=== PATIENT | male | born 1975 | race Caucasian/White ===

== ENCOUNTER 2019-12-05 11:00 | Emergency (ER) | payer BC, SELFPAY ==
--- NOTE | ~2019-12-05 | XR_ITS ---
EXAMINATION: XR chest 2V DATE: 12/05/2019 12:07 INDICATION: Cough and shortness of breath. TECHNIQUE: Frontal and lateral views of the chest were obtained. COMPARISON: Chest 2 views 03/23/2014 FINDINGS: The chest demonstrates clear lungs without pneumonia, pleural effusion, or pneumothorax. Th e heart size is normal. IMPRESSION: 1. No acute cardiopulmonary disease. Reviewed, dictated and finalized at location A.
[2019-12-05 11:10] VITALS: BP 118/80; PULSE 84; RESP 18; TEMP 36.8; O2SAT 98
--- NOTE | 2019-12-05 11:14 | ECG_ITS ---
Measurements Intervals [place] Rate: 71 P: 31 OK: 164 QRS: 5 QRSD: 106 T: 9 QT: 355 QTc: 386 Interpretive Statements SINUS RHYTHM POSSIBLE LEFT ATRIAL ENLARGEMENT BASELINE ARTIFACT- V3 BORDERLINE ECG Electronically Signed On 12-05-2019 13:43:02 CDT by Marshal Troy D.O.
--- NOTE | 2019-12-05 11:15 | ED.URI ---
HPI - URI/Sore Throat General Chief Complaint: Chest Pain Stated Complaint: cough/chest congestion/pain Time Seen by Provider: 12/05/19 11:20 Source: patient and RN notes reviewed Mode of arrival: ambulatory Limitations: no limitations History of Present Illness HPI Narrative: 44 year old male who presents to [facility] care with complaints of cough with sinus drainage, intermittent chest tightness and left chest pain for the past 2-3 weeks. Patient states that he has burning type of pain in his chest, has been taking flonase for his nasal drainage. Patient states shortness of breath and chest pain not increased with activity, denies any palpitations or peripheral edema.Patient does have history of hypertension and hyperlipidemia, states that chest pain has increased in frequency for the past 2 days, rates pain a 3/10, states that he took 2 aspirin tabs this morning. He states family history of cardiac disease in his father who passed at age 55. MD elicited complaint: cough, rhinorrhea and other (chest pain) Pertinent past history: tympanostony tubes Onset (ago): week(s) (2-3 weeks with increase in past 2 days) Consistency: intermittent Severity: mild Description of mucous: clear Able to tolerate fluids by mouth: Yes Exacerbating factors: nothing Relieving factors: nothing Context: other (previous sinus drainage) Associated symptoms: rhinorrhea, cough, chest pain and shortness of breath Treatments prior to arrival: other (nasal spray, took aspirin today) Related Data Home Medications Medication Instructions Recorded Confirmed fluticasone propionate 50 1 spray NASAL DAILY 10/25/19 mcg/actuation nasal spray,suspension lisinopril 10 mg tablet 10 mg PO DAILY 10/25/19 simvastatin 40 mg tablet 40 mg PO QPM tablet 10/25/19 Allergies Allergy/AdvReac Type Severity Reaction Status Date / Time No Known Allergies Allergy Verified 12/05/19 11:27 Review of Systems Review of Systems: Narrative: CONSTITUTIONAL: Denies fever, chills, or sweats. EYES: Denies visual changes, redness, or discharge. ENT: positive rhinorrhea, congestion, no present sore throat, or otalgia. CARDIOVASCULAR: States intermittent anterior left chest pain, burning and tightness to chest,no palpitations, or edema. RESPIRATORY: States some cough and dyspnea. GASTROINTESTINAL: Denies abdominal pain, nausea, vomiting, or diarrhea. GENITOURINARY: Denies dysuria or hematuria. SKIN: Denies rash or itching. MUSCULOSKELETAL: Denies back pain, joint pain, or myalgia. NEUROLOGIC: Denies headache, numbness, or weakness. PSYCHIATRIC: Denies anxiety or depression. All systems reviewed & are unremarkable except as noted in HPI and below PMFSH Past Medical History Medical History (Updated 12/05/19 @ 12:22 by Susie Roy NP) Boxers fracture Carpal tunnel syndrome of right wrist Ear drum perforation Hyperlipidemia Hypertension Tumor cells, benign Surgical History Surgical History History of placement of ear tubes Family History Family History Other Family history of coronary artery disease Social History Social History Smoking status: Never smoker Second hand tobacco smoke exposure: No Alcohol intake: current Drinks per week: 2 Substance use: never Substance use type: does not use Gender identity (if verbalized by the patient): Male Spiritual care concerns: Yes Agree to blood products: Yes Comments At time of signature, agree with nursing past medical, surgical, social history. There is relevant family history pertinent to the presenting complaint Exam Narrative: Exam Narrative: GENERAL: Well-appearing, well-nourished, and in no acute distress. HEAD: Normocephalic, atraumatic. EYES: PERRLA and EOMI. ENT: Nares clear, clear rhinorrhea or epistaxis. Mucous membrane
== END 2019-12-05 12:23 | disposition short-term general hospital (02) ==
PROVIDERS: Emergency Provider Registered Nurse; PCP Family Medicine
DX: R06.02 Shortness of breath (principal); R07.9 Chest pain, unspecified; E78.5 Hyperlipidemia, unspecified; I10 Essential (primary) hypertension
CPT/HCPCS: 71046; 93005; 99213; G0463

== ENCOUNTER 2019-12-05 13:20 | Emergency (ER) | payer BC, SELFPAY ==
[2019-12-05 13:24] VITALS: BP 148/86; PULSE 95; RESP 18; TEMP 36.6; O2SAT 97
--- NOTE | 2019-12-05 13:27 | ECG_ITS ---
Measurements Intervals [place] Rate: 99 P: 38 MN: 159 QRS: 1 QRSD: 110 T: 29 QT: 328 QTc: 421 Interpretive Statements SINUS RHYTHM BASELINE ARTIFACT- I, II, III, AVR, AVF BORDERLINE ECG Electronically Signed On 12-05-2019 13:45:46 CDT by Marshal Troy D.O.
--- NOTE | 2019-12-05 13:33 | ED.CHESTPAIN ---
HPI - Chest Pain General Chief Complaint: Chest Pain <Karuna Maier MD - Last Filed: 12/06/19 06:31> Stated Complaint: chest pain, short of breath <Karuna Maier MD - Last Filed: 12/06/19 06:31> Time Seen by Provider: 12/05/19 13:27 <Karuna Maier MD - Last Filed: 12/06/19 06:31> Source: patient and RN notes reviewed <Karuna Maier MD - Last Filed: 12/06/19 06:31> Mode of arrival: ambulatory <Karuna Maier MD - Last Filed: 12/06/19 06:31> Limitations: no limitations <Karuna Maier MD - Last Filed: 12/06/19 06:31> History of Present Illness HPI narrative: Pt is a 44 y/o male who presents to the ED with c/o progressively worsening midsternal chest pain starting roughly 1 month ago. He notes that his pain has been constant over the past week. Pt describes his pain as burning, and notes that nothing in particular seems to aggravate his pain. He currently rates his pain at 2-3/10. Pt reports nausea, post-nasal drip, and a dry cough accompanying his pain, but denies any back pain, LE edema, or LE pain. He notes that he took ASA this morning for his pain. Pt states that his father from cardiac complications at the age of 55. <Karuna Maier MD - Last Filed: 12/06/19 06:31> MD complaint: chest pain <Karuna Maier MD - Last Filed: 12/06/19 06:31> Onset (ago): month(s) (1) <Karuna Maier MD - Last Filed: 12/06/19 06:31> Timing of current episode: other (progressively worsening) <Karuna Maier MD - Last Filed: 12/06/19 06:31> Pain location: other (midsternal chest) <Karuna Maier MD - Last Filed: 12/06/19 06:31> Pain radiation: none <Karuna Maier MD - Last Filed: 12/06/19 06:31> Pain scale (0-10): 3 <Karuna Maier MD - Last Filed: 12/06/19 06:31> Quality: burning <Karuna Maier MD - Last Filed: 12/06/19 06:31> Exacerbating factors: nothing <Karuna Maier MD - Last Filed: 12/06/19 06:31> Associated symptoms: nausea, cough and other (post-nasal drip) <Karuna Maier MD - Last Filed: 12/06/19 06:31> Treatment prior to arrival: aspirin <Karuna Maier MD - Last Filed: 12/06/19 06:31> Related Data Home Medications: Home Medications Medication Instructions Recorded Confirmed fluticasone propionate 50 1 spray NASAL DAILY 10/25/19 12/05/19 mcg/actuation nasal spray,suspension lisinopril 10 mg tablet 10 mg PO DAILY 10/25/19 12/05/19 simvastatin 40 mg tablet 40 mg PO QPM tablet 10/25/1920 <Karuna Maier MD - Last Filed: 12/06/19 06:31> Allergies/Adverse Reactions: Allergies Allergy/AdvReac Type Severity Reaction Status Date / Time No Known Allergies Allergy Verified 12/05/19 11:27 <Karuna Maier MD - Last Filed: 12/06/19 06:31> Review of Systems Review of Systems: All systems reviewed & are unremarkable except as noted in HPI and below <Karuna Maier MD - Last Filed: 12/06/19 06:31> ENT: Reports post nasal drip <Karuna Maier MD - Last Filed: 12/06/19 06:31> Cardiovascular: Cardiovascular: Reports chest pain (midsternal chest pain) and Denies leg edema <Karuna Maier MD - Last Filed: 12/06/19 06:31> Respiratory: Respiratory: Reports cough <Karuna Maier MD - Last Filed: 12/06/19 06:31> Gastrointestinal: Gastrointestinal: Reports nausea <Karuna Maier MD - Last Filed: 12/06/19 06:31> Musculoskeletal: Musculoskeletal: Denies back pain and Denies other (LE pain) <Karuna Maier MD - Last Filed: 12/06/19 06:31> [facility] Past Medical History Medical History: Medical History Back pain Boxers fracture Carpal tunnel syndrome of right wrist Ear drum perforation History of angina Hyperlipidemia Hypertension Tumor cells, benign <Karuna Maier MD - Last Filed: 12/06/19 06:31> Surgical History Surgical History: Surgica
[2019-12-05 13:35] VITALS: PULSE 101
[2019-12-05] MEDS: ASPIRIN 81 MG CHEWABLE TABLET 324 MG PO (13:37)
[2019-12-05 13:39] LABS: Basophils Percent Auto 0.2 % (0.2-1.2); Eosinophils Absolute Auto 0.3 K/mm3 (0-0.3); Hematocrit 50.4 % (42.0-52.0); Hemoglobin 16.9 g/dL (14.0-18.0); Immature Granulocyte Absolute 0.04 K/mm3 (0.00-0.031); Immature Granulocyte Percent A 0.5 % (0-0.5); Lymphocytes Percent Auto 20.3 % (18.3-44.2); Mean Corpuscular HGB Conc 33.5 g/dl (32-36); Mean Corpuscular Hemoglobin 29.8 pg (26-34); Mean Corpuscular Volume 88.9 fl (80-100); Mean Platelet Volume 10.5 fl (7.4-10.4); Monocytes Absolute Auto 0.5 K/mm3 (0.1-0.6); Monocytes Percent Auto 5.5 % (2.6-8.5); Neutrophils Absolute Auto 5.9 K/mm3 (1.3-6.7); Neutrophils Percent Auto 70.5 % (45.5-73.1); Platelet Count Result 201 k/mm3 (150-375); Red Blood Count 5.67 M/mm3 (4.6-6.20); Red Cell Distribution Width 12.7 % (11.5-14.5); White Blood Count 8.4 K/mm3 (4.5-10.0)
[2019-12-05 13:40] VITALS: O2SAT 98
[2019-12-05 13:49] LABS: Prothrombin Time 12.5 Seconds (11.1-14.7)
[2019-12-05 13:50] LABS: Blood Urea Nitrogen 12 mg/dL (9-20); Calcium 9.7 mg/dL (8.4-10.2); Carbon Dioxide 29 mmol/L (22-30); Chloride 100 mmol/L (98-107); Estimated CRCL calculation 117 ml/min; Estimated Glomerular Filt Rate > 60; Glucose 179 mg/dL (75-110); Partial Thromboplastin Time 28.9 SECONDS (22.3-36.8); Potassium 3.8 mmol/L (3.4-5.0); Sodium 137 mmol/L (137-145)
[2019-12-05 13:53] LABS: D Dimer 0.27 ug/mL (<0.48)
[2019-12-05 14:02] LABS: Troponin I < 0.012 ng/mL (0.000-0.034)
[2019-12-05 14:41] VITALS: BP 143/92; PULSE 81; RESP 18; O2SAT 97
[2019-12-05] MEDS: BELLADONNA ALK/PHENOB ELIX 10 ML, MAG HYDROX/ALUMINUM HYD/SIMETH 30 ML, LIDOCAINE HCL 2... PO (14:53)
--- NOTE | 2019-12-05 15:29 | PC.NURSE ---
pt reports no improvement in upper abd discomfort/burning after gi cocktail. rates discomfort at 3/10.
[2019-12-05 17:11] LABS: Troponin I < 0.012 ng/mL (0.000-0.034)
[2019-12-05 17:35] VITALS: BP 142/93; PULSE 77; RESP 17; O2SAT 97
== END 2019-12-05 17:36 | disposition home or self-care (01) ==
PROVIDERS: Emergency Provider General Practice; PCP Family Medicine
DX: R07.89 Other chest pain (principal); E78.5 Hyperlipidemia, unspecified; I10 Essential (primary) hypertension; R94.31 Abnormal electrocardiogram [ECG] [EKG]
CPT/HCPCS: 36415; 80048; 84484; 85025; 85380; 85610; 85730; 93005; 99284; A9270

== ENCOUNTER 2019-12-23 07:11 | Outpatient (CLI) | payer BC, SELFPAY ==
--- NOTE | ~2019-12-23 | NM_ITS ---
EXAMINATION: NM stress w perf spect multi DATE: 12/23/2019 10:31 INDICATION: Abnormal EKG. Chest pain and essential hypertension. TECHNIQUE: Rest images were obtained following intravenous administration of 9.53 mCi Tc99m tetrofosm in (Myoview). The patient performed an exercise activity. At peak exercise, 29.6 mCi Tc99m tetrofosmi n (Myoview) was administered intravenously, and stress images were obtained. Data was reconstructed i nto short axis and horizontal and vertical long axis SPECT images. Gated SPECT images were also obtai haylee. COMPARISON: None. FINDINGS: There is normal left ventricular perfusion without definite evidence of reversible or fixed perfusion abnormality to suggest ischemia or infarction. There is normal left ventricular chamber size, wall motion and ejection fraction. Left ventricular ejection fraction measures >70%. IMPRESSION: 1. Normal myocardial perfusion at rest and during stress. 2. Left ventricular ejection fraction measuring >70%. Reviewed, dictated and finalized at location A.
--- NOTE | 2019-12-23 07:13 | EST_ITS ---
Patient Info Name: Eric Bojorquez Age: 44 years : 1975 Gender: Male Ht: 73 in Wt: 230 lbs BSA: 2.34 m2 Exam Date: 12/23/2019 9:13 AM Exam Location: [facility] Stress Patient Status: Outpatient Admit Date: 12/23/2019 Staff Ordering Physician: Kary Britton MD Attending Provider: Kary Britton MD Exercise Technologist: Dinah Roberts RDCS Exercise Physician: Marshal Troy DO Exam Type: CA stress test treadmill w NM Study Info Indications I10 - Essential (primary) hypertension R94.31 - Abnormal electrocardiogram ECG EKG A pharmacological stress test was performed. Summary 1. 1. Negative Faustino exercise stress test for ischemic ST changes by ECG criteria. 2. 2. Good functional capacity, achieving 11 METs of workload. 3. 3. Baseline hypertension. 4. 4. Appropriate HR response to exercise. 5. 5. Appropriate HR recovery at 1 minute post exercise. 6. 6. Nuclear scan to follow and will be reported separately. Please correlate with it. 7. 7. Patient informed of the above results. Protocol: Faustino Stress ECG Details Stage: REST Duration (min): 6 min : 17 sec Speed (mph): 0.0 Grade (%): 0 HR (bpm): 71 SBP (mmHg): 140 DBP (mmHg): 94 METS: --- Stage: REST Duration (min): 13 min : 56 sec Speed (mph): 0.0 Grade (%): 0 HR (bpm): 77 SBP (mmHg): 140 DBP (mmHg): 94 METS: --- Stage: STAGE 1 Duration (min): 1 min : 0 sec Speed (mph): 1.7 Grade (%): 10 HR (bpm): 86 SBP (mmHg): 140 DBP (mmHg): 94 METS: --- Stage: STAGE 1 Duration (min): 2 min : 0 sec Speed (mph): 1.7 Grade (%): 10 HR (bpm): 100 SBP (mmHg): 140 DBP (mmHg): 94 METS: --- Stage: STAGE 1 Duration (min): 3 min : 0 sec Speed (mph): 1.7 Grade (%): 10 HR (bpm): 104 SBP (mmHg): 163 DBP (mmHg): 85 METS: --- Stage: STAGE 2 Duration (min): 1 min : 0 sec Speed (mph): 2.5 Grade (%): 12 HR (bpm): 119 SBP (mmHg): 163 DBP (mmHg): 85 METS: --- Stage: STAGE 2 Duration (min): 2 min : 0 sec Speed (mph): 2.5 Grade (%): 12 HR (bpm): 126 SBP (mmHg): 177 DBP (mmHg): 82 METS: --- Stage: STAGE 2 Duration (min): 3 min : 0 sec Speed (mph): 2.5 Grade (%): 12 HR (bpm): 125 SBP (mmHg): 177 DBP (mmHg): 82 METS: --- Stage: STAGE 3 Duration (min): 1 min : 0 sec Speed (mph): 3.4 Grade (%): 14 HR (bpm): 138 SBP (mmHg): 164 DBP (mmHg): 87 METS: --- Stage: STAGE 3 Duration (min): 2 min : 0 sec Speed (mph): 3.4 Grade (%): 14 HR (bpm): 146 SBP (mmHg): 164 DBP (mmHg): 87 METS: --- Stage: STAGE 3 Duration (min): 3 min : 0 sec Speed (mph): 3.4 Grade (%): 14 HR (bpm): 150 SBP (mmHg): 168 DBP (mmHg): 86 METS: --- Stage: STAGE 4 Duration (min): 0 min : 45 sec Speed (mph): 4.2 Grade (%): 16 HR (bpm): 161 SBP (mmHg): 168 DBP (
== END 2019-12-23 07:12 | disposition home or self-care (01) ==
LOC: ANHCARD 07:13
PROVIDERS: PCP Family Medicine; Visit Provider Family Medicine
DX: R94.31 Abnormal electrocardiogram [ECG] [EKG] (principal); R07.89 Other chest pain; I10 Essential (primary) hypertension
CPT/HCPCS: 78452; 93017; A9502

== ENCOUNTER 2020-02-24 19:12 | Emergency (ER) | payer BC, SELFPAY ==
--- NOTE | ~2020-02-24 | CT_ITS ---
EXAMINATION: CT abdomen pelvis wo con DATE: 02/24/2020 19:54 INDICATION: Left lower quadrant abdominal pain TECHNIQUE: Computed tomography (CT) of the abdomen and pelvis was performed without intravenous contr ast. The dose-length product (DLP) was 1206.03 mGy-cm. Automated exposure control and iterative recon struction technique were employed. COMPARISON: None FINDINGS: The lung bases are clear. The heart size is normal. The liver, spleen, pancreas, gallbladde r, and adrenal glands are normal. A stone is present in the nondistended gallbladder. The kidneys are unremarkable. No pathologically enlarged abdominal or pelvic lymph nodes are identified. The appendi x is normal. There is no free intraperitoneal gas or evidence of bowel obstruction. There are fat-con taining inguinal hernias. There is mild lumbar spondylosis. IMPRESSION: 1. No CT correlate for the patient's symptoms. 2. Cholelithiasis without evidence of cholecystitis. Reviewed, dictated and finalized at location A.
--- NOTE | ~2020-02-24 | US_ITS ---
EXAMINATION: US scrotum doppler DATE: 02/24/2020 21:13 INDICATION: Left testicular pain TECHNIQUE: Testicular sonogram utilizing grayscale and Doppler COMPARISON: None. FINDINGS: The right testis measures 4.2 x 3.0 x 2.7 cm. The left testis measures 3.3 x 3.0 x 2.3 cm. There is normal vascular flow to both testes. The right epididymis is normal with normal vascular bennie w. The left epididymis is normal with normal vascular flow. There is no varicocele or hydrocele. IMPRESSION: 1. No sonographic correlate for the patient's symptoms. Reviewed, dictated and finalized at location A.
[2020-02-24 19:21] VITALS: BP 153/95; PULSE 79; RESP 14; TEMP 36.7; O2SAT 99
[2020-02-24 19:27] VITALS: BP 147/93; PULSE 89; RESP 17; TEMP 37.3; O2SAT 98
--- NOTE | 2020-02-24 19:34 | ED.ABDPAIN ---
HPI - Abdominal Pain General Chief Complaint: Urogenital-Male Stated Complaint: testicular pain Time Seen by Provider: 02/24/20 19:25 Source: RN notes reviewed History of Present Illness HPI narrative: Patient presents emergency department from home for abdominal pain. Patient states symptoms began 1 week ago. Patient states he has pain in left lower quadrant radiating to the left testicle. The pain is described as sharp and stabbing. States one episode of emesis 2 days ago but none since. Denies any fevers or chills diarrhea dysuria hematuria or any other symptoms. States he took naproxen today with minimal relief Related Data Home Medications Medication Instructions Recorded Confirmed fluticasone propionate 50 1 spray NASAL DAILY 10/25/19 12/06/19 mcg/actuation nasal spray,suspension Allergies Allergy/AdvReac Type Severity Reaction Status Date / Time No Known Allergies Allergy Verified 02/24/20 19:29 Review of Systems Review of Systems: Narrative: Gen.: Denies fevers or chills ENT: Denies congestion Respiratory: Denies shortness of breath or cough CV: Denies chest pain or palpitations GI: See HPI denies burning, urgency, frequency or hematuria, reports left testicle pain Musculoskeletal: Denies back pain or muscle pain Neuro: Denies numbness, tingling, weakness or focal weakness Skin: Denies rash Except as documented, all other systems reviewed and negative PMFSH Past Medical History Medical History Back pain Boxers fracture Carpal tunnel syndrome of right wrist Ear drum perforation History of angina Hyperlipidemia Hypertension Tumor cells, benign Family History Family History (System 01/25/20 @ 08:48 by Joellen Mcconnell) Father Acute myocardial infarction Other Family history of coronary artery disease Social History Social History Smoking status: Never smoker Second hand tobacco smoke exposure: No Alcohol intake: current Drinks per week: 2 Substance use: never Substance use type: does not use Gender identity (if verbalized by the patient): Male Spiritual care concerns: Yes Agree to blood products: Yes Exam Narrative: Exam Narrative: APPEARANCE: No acute distress, nontoxic, resting in bed HEENT: Normocephalic, atraumatic, OMM RESPIRATORY: No respiratory distress, clear to auscultation bilaterally with no rhonchi wheezing or rales CARDIOVASCULAR: RRR s murmur ABDOMINAL: Soft, nondistended, tender palpation left lower quadrant, no tenderness left upper quadrant, right upper quadrant right lower quadrant, no rebound or guarding : No skin lesions, no scrotal swelling or erythema, mild tenderness over posterior superior left testicle, no tenderness over the right testicle no hernias palpated MUSCULOSKELETAl: Moves all extremities. No clubbing, cyanosis or edema. NEURO: Awake and alert. Following commands, speech normal, no focal deficits SKIN:: Warm, dry. Normal Color PSYCHIATRIC: Normal affect/mood Course Course Emergency Course: Discussed with Dr. Mukherjee for urology presentation work-up. This time recommend starting patient on doxycycline 100 mg twice daily for 1 week the anti-inflammatory and follow-up as an outpatient Discussed with patient results of workup and diagnosis. Discussed need for follow-up with primary care, proper use of medication, and reasons to return to the emergency department. Patient understands and agrees to current treatment plan. I did update the patient on incidental finding of gallstones need for follow-up with PCP as an outpatient Vital Signs Vital signs: Vital Signs Temperature 98.1 F 02/24/20 19:21 Pulse Rate 79 02/24/20 19:21 Respiratory Rate 14 02/24/20 19:21 Blood Pressure 153/95 H 02/24/20 19:21 Pulse Oximetry 99 02/24/20 19:21 Temperature 99.1 F 02/24/20 19:27 Pulse Rate 73 02/24/20 2
[2020-02-24 20:00] LABS: Basophils Percent Auto 0.3 % (0.2-1.2); Eosinophils Absolute Auto 0.3 K/mm3 (0-0.3); Hematocrit 46.5 % (42.0-52.0); Hemoglobin 15.9 g/dL (14.0-18.0); Immature Granulocyte Absolute 0.02 K/mm3 (0.00-0.031); Immature Granulocyte Percent A 0.2 % (0-0.5); Lymphocytes Absolute Auto 2.17 K/mm3 (0.9-3.2); Lymphocytes Percent Auto 25.2 % (18.3-44.2); Mean Corpuscular HGB Conc 34.2 g/dl (32-36); Mean Corpuscular Hemoglobin 30.6 pg (26-34); Mean Corpuscular Volume 89.4 fl (80-100); Mean Platelet Volume 10.9 fl (7.4-10.4); Monocytes Absolute Auto 0.6 K/mm3 (0.1-0.6); Monocytes Percent Auto 7.3 % (2.6-8.5); Neutrophils Absolute Auto 5.5 K/mm3 (1.3-6.7); Platelet Count Result 203 k/mm3 (150-375); Red Cell Distribution Width 12.1 % (11.5-14.5); White Blood Count 8.6 K/mm3 (4.5-10.0)
[2020-02-24 20:02] VITALS: BP 141/89; PULSE 80; RESP 16; O2SAT 97
[2020-02-24 20:02] LABS: Alanine Aminotransferase 32 U/L (4-50); Albumin Level 4.6 g/dL (3.5-5.1); Alkaline Phosphatase 66 U/L (38-126); Aspartate Amino Transferase 28 U/L (17-59); Bilirubin,Total 0.4 mg/dL (0.2-1.3); Blood Urea Nitrogen 17 mg/dL (9-20); Calcium 9.5 mg/dL (8.4-10.2); Carbon Dioxide 26 mmol/L (22-30); Chloride 102 mmol/L (98-107); Estimated CRCL calculation 106 ml/min; Estimated Glomerular Filt Rate > 60; Glucose 99 mg/dL (75-110); Potassium 3.9 mmol/L (3.4-5.0); Sodium 135 mmol/L (137-145)
[2020-02-24 20:38] VITALS: BP 151/95; PULSE 73; RESP 16; O2SAT 96
[2020-02-24 21:04] LABS: Add Urine Microscopic? YES; Appearance Urine Clear (Clear); Bacteria Urine Trace /hpf; Bilirubin Urine Negative (Negative); Blood Urine Negative (Negative); Color Urine Yellow (Yellow); Glucose Urine UA Negative (Negative); Ketones Urine Negative (Negative); Leukocyte Esterase Ur Negative LEU/UL (Negative); Mucus Urine Moderate /lpf; Nitrate Urine Negative (Negative); Protein Urine Negative (Negative); WBC Urine 0-3 /hpf
[2020-02-24 21:51] VITALS: BP 140/98; PULSE 79; RESP 17; O2SAT 96
[2020-02-24] MEDS: DOXYCYCLINE HYCLATE 100 MG TABLET PO (21:51)
== END 2020-02-24 22:00 | disposition home or self-care (01) ==
PROVIDERS: Emergency Provider Emergency Medicine; PCP Family Medicine
DX: N50.812 Left testicular pain (principal); E78.5 Hyperlipidemia, unspecified; I10 Essential (primary) hypertension; K80.20 Calculus of gallbladder without cholecystitis without obstruction
CPT/HCPCS: 36415; 74176; 76870; 80053; 81001; 85025; 87086; 93976; 99284; A9270

== ENCOUNTER 2021-03-13 10:52 | Outpatient (CLI) | payer BC, SELFPAY ==
--- NOTE | 2021-03-28 17:14 | WPDSLEEPSTUD ---
Sleep Study Date of Study: 03/12/21 Ordering Provider: Nam Bell PA-C Interpreting Physician: Cathy De La Rosa MD Sleep Study Type: Split Polysomnogram Height: 1.85 m Weight: 104.326 kg Body Mass Index: 30.3 Neck Circumference (inches): 18 [place]: 8 Reason for Sleep Study Witnessed apneas, daytime somnolence Sleep History Eric Bojorquez is a 45 year old man who has been told that he stops breathing at night, and this is been noted at least 10 years. His father had sleep apnea and used CPAP. He does not awaken from sleep feeling short of breath. He rarely awakens at night with heartburn, belching or coughing. He constantly snores loudly enough that others complain about it. He does not have trouble sleeping with a cold. He rarely wakes up gasping for breath at night. He frequently has breathing problems at night observed by others. He occasionally sweats excessively at night although he rarely notices his heart pounding or beating irregularly night. He occasionally falls asleep in the day, never involuntarily and he never falls asleep while driving. He does not have loss of muscle tone with strong emotion. He occasionally has daytime difficulties due to excessive sleepiness. He does not feel paralyzed on waking or falling asleep nor does he have vivid dreamlike scenes upon awakening or falling asleep. He does not feel afraid to go to sleep. He does not have much nightmares. He rarely remembers his dreams. He rarely has racing thoughts. He rarely feels sad or depressed. He occasionally feels anxious. He rarely has muscular tension. He never notices parts of his body jerking and he never kicks at night. He occasionally has crawling and aching feelings in his legs and occasionally has leg pain during the night. He does not have morning jaw pain and does not grind his teeth during sleep. He occasionally has bothered by pain during the day, rarely awakened by pain at night. He frequently wakes up feeling stiff the morning. He occasionally wakes up with sore achy muscles and pain in the neck and spine. He has fatigue, sexual problems, frequent morning headaches and concentration difficulties. Normal bedtime is 10:00 p.m. falling asleep as soon as his head hits the pillow, less than a minute. He typically wakes up 2-3 times at night to urinate, is able to return to sleep within 2 minutes. He wakes the morning at 6:30 a.m.. He estimates getting between 7 and 8 hours of sleep at night. He occasionally takes naps in the afternoon or evening. Naps are not refreshing. He is usually drowsy in the morning for 2 hours or longer. He feels better in the evening compared other times of day. Habits: never smoked tobacco. Caffeine 2 beverages a day. Alcohol 2-3 beverages but not daily. [facility] Past Medical History Medical History (Updated 03/28/21 @ 17:53 by Cathy De La Rosa MD) Back pain Boxers fracture Carpal tunnel syndrome of right wrist Ear drum perforation History of angina Hyperlipidemia Hypertension Tumor cells, benign Surgical History Surgical History History of placement of ear tubes Hx of carpal tunnel repair Family History Family History Father Acute myocardial infarction Other Family history of coronary artery disease Social History Social History Smoking status: Never smoker Second hand tobacco smoke exposure: No Alcohol intake: current Drinks per week: 2 Substance use: never Substance use type: does not use Gender identity (if verbalized by the patient): Male Spiritual care concerns: Yes Agree to blood products: Yes Medications Home Medications Medication Instructions Recorded Confirmed Type ibuprofen [IBU] 600 mg PO Q6H PRN #20 tablet 02/24/20 10/25/20 Rx fluticasone propionate 50 1 spray INTRANASAL B
[2021-03-28 17:59] VITALS: BMI 30.3
== END 2021-03-14 05:52 | disposition home or self-care (01) ==
LOC: ANHCSM 03-15 08:59
PROVIDERS: PCP Physician Assistant; Visit Provider Physician Assistant
DX: G47.30 Sleep apnea, unspecified (principal); R40.0 Somnolence; G47.33 Obstructive sleep apnea (adult) (pediatric)
CPT/HCPCS: 95811

== ENCOUNTER 2023-09-17 07:43 | Outpatient (CLI) | payer OTHER, SELFPAY ==
--- NOTE | ~2023-09-17 | CT_ITS ---
EXAMINATION:CT diagnostic chest w con DATE: 09/17/2023 08:08 INDICATION: Shortness of breath. TECHNIQUE: Computed tomography (CT) of the chest was performed with 75 mL Omnipaque 350 intravenous c ontrast. Automated exposure control and iterative reconstruction technique were employed. The dose-le ngth product (DLP) was 437.29 mGy-cm. COMPARISON: None. FINDINGS: The lungs demonstrate mild atelectasis. Calcified bilateral lung nodules and calcified left hilar lymph nodes are consistent with old granulomatous disease. There are a few nodules in the lung s measuring up to 3 mm, likely benign. No pleural effusion. The heart normal. No pericardial effusion . There is a small sliding hiatal hernia. There is mild thoracic spondylosis. There is mild chronic a nterior wedging of a midthoracic body. IMPRESSION: 1. Small sliding hiatal hernia. Reviewed, dictated and finalized at location E. SPOOLER
[2023-09-17 08:01] LABS: Estimated Glomerular Filt Rate > 60
== END 2023-09-17 07:44 | disposition home or self-care (01) ==
PROVIDERS: PCP Family Medicine; Visit Provider Physician Assistant
DX: R06.02 Shortness of breath (principal); K44.9 Diaphragmatic hernia without obstruction or gangrene
CPT/HCPCS: 71260; Q9967

== ENCOUNTER 2023-09-24 08:10 | Outpatient (CLI) | payer OTHER, SELFPAY ==
--- NOTE | 2023-09-24 14:20 | WPDPFTINT ---
PFT Procedure Performed PFT Procedure Performed Plethysmography (Lung Vol) Diffusing Cap (DLCO) Flow Vol Loop Spirometry w/o Bronchodil PFT Interpretation Lung volumes were measured with the body plethysmography method. The diminished expiratory reserve volume is related to obesity. The remaining lung volumes are unremarkable. Spirometry showed normal expiratory flow rates and a normal FEV1 to FVC ratio of 84%. No post bronchodilator study was conducted. Lung diffusion capacity is within the normal range at 106% predicted. The flow volume loop is unremarkable. Impression: Spirometry, lung volumes, and lung diffusion capacity all within the normal range.
--- NOTE | 2023-09-25 15:32 | WPDPFTINT ---
PFT Procedure Performed PFT Procedure Performed Plethysmography (Lung Vol) Diffusing Cap (DLCO) Flow Vol Loop Spirometry w/o Bronchodil PFT Interpretation This is a pulmonary function test with spirometry, plethysmography and diffusing capacity. The test was performed and results interpreted in accordance with the 2019 and 2005 ATS/ERS Task Force guidelines respectively using the Global Lung Function Initiative-2012 reference equations. Patient demonstrated good effort and cooperation. Reproducibility criteria were met. The quality of the spirometry maneuver was Grade B. Findings: Spirometry: The contour the expiratory flow tracing is normal. The contour the inspiratory flow tracing is truncated. The FVC is 5.00 L, 92% predicted. The FEV1 is 4.18 L, 98% predicted. The FEV1: FVC ratio was 84%. Plethysmography: The total lung capacity is 6.65 L, 90% predicted. The functional residual capacity is 2.02 L, 53% predicted. The residual volume is 1.57 L, 75% predicted. Diffusing capacity: The diffusing capacity unadjusted for hemoglobin and carboxyhemoglobin is 33.9, 106% predicted. The diffusing capacity adjusted for alveolar volume is 6.11, 136% predicted. Impression: The spirometry is normal without evidence of an obstructive abnormality. The total lung capacity and residual volume are normal with a decreased functional residual capacity. This is an abnormal but nonspecific lung volume pattern. The diffusing capacity unadjusted for hemoglobin and carboxyhemoglobin is normal and is increased when adjusted for alveolar volume. There are no prior studies for comparison
== END 2023-09-24 08:11 | disposition home or self-care (01) ==
LOC: ANHPFT 08:13
PROVIDERS: PCP Family Medicine; Visit Provider Physician Assistant
DX: R06.02 Shortness of breath (principal)
CPT/HCPCS: 94375; 94726; 94729

== ENCOUNTER 2023-11-23 00:38 | Day surgery (SDC) | payer OTHER, SELFPAY ==
[2023-11-16 09:07] VITALS: BMI 33.0
--- NOTE | 2023-11-20 08:32 | SUR.PREOP ---
Patient called regarding upcoming procedure. Voicemail left regarding appointment times.
[2023-11-23 06:50] VITALS: BP 128/80; PULSE 93; RESP 18; TEMP 36.3; O2SAT 98; BMI 31.5
[2023-11-23] MEDS: LACTATED RINGERS 1,000 ML 150 ML IV CONT (07:07)
--- NOTE | 2023-11-23 07:30 | WPDANESEPPF ---
Anes - Initial Pre Proc Eval Procedure: Operation Date: 11/23/23 08:00 Proposed Procedures p Colonoscopy - Erwin Obrien MD Date/Time: 11/23/23 07:30 Surgeon: Erwin Obrien MD Pre Op Diagnosis: neoplasm screening Patient Data Age: 48 Gender: M Height: 1.85 m Weight: 108.3 kg Last Vital Signs Temp 97.3 F L 11/23/23 06:50 Pulse 93 11/23/23 06:50 Resp 18 11/23/23 06:50 BP 128/80 11/23/23 06:50 Pulse Ox 98 11/23/23 06:50 O2 Del Method Room Air 11/23/23 06:50 Allergies Allergy/AdvReac Type Severity Reaction Status Date / Time No Known Allergies Allergy Verified 11/23/23 06:56 Home Medications Medication Instructions Recorded Confirmed Type ibuprofen 600 mg tablet (IBU) 600 mg PO Q6H PRN pain #20 tabs 02/24/20 11/23/23 Rx fluticasone propionate 50 1 spray intranasal BID #16 grams 10/25/20 11/23/23 Rx mcg/actuation nasal spray,suspension (Allergy Relief (fluticasone)) loratadine 10 mg tablet (Claritin) 10 mg PO DAILY #30 tabs 10/25/20 11/23/23 Rx sildenafil 100 mg tablet (Viagra) 100 mg PO DAILY PRN sexual 06/18/22 11/23/23 Rx activity #10 tabs lisinopril 10 mg tablet 10 mg PO DAILY #90 tabs 05/01/23 11/23/23 Rx simvastatin 40 mg tablet 40 mg PO QPM #90 tabs 05/01/23 11/23/23 Rx Patient hx anesthesia problems: none Family hx anesthesia problems: none Results Review: All pre-operative results and documents have been reviewed as part of the pre-operative evaluation. [facility] Past Medical History Medical History Back pain Boxers fracture Carpal tunnel syndrome of right wrist Ear drum perforation History of angina Hyperlipidemia Hypertension Tumor cells, benign Surgical History Surgical History History of placement of ear tubes Hx of carpal tunnel repair Family History Family History Father Acute myocardial infarction Other Family history of coronary artery disease Social History Social History Smoking status: Never smoker Smokeless tobacco user: chewing tobacco Second hand tobacco smoke exposure: No Alcohol intake: current Drinks per week: 12 Substance use: never Substance use type: does not use Living arrangements: with family Occupation/Education: occupation Gender identity (if verbalized by the patient): Male Spiritual care concerns: No Agree to blood products: Yes Anes - Eval Final PreProcedure Day of Procedure 11/23/23 07:30 Patient weight: obese Heart: regular rate and rhythm Lungs: clear to auscultation Airway: Mallampati scale class II Neurological: alert and oriented Last oral intake: >/= 8 hours ASA classification: III Emergent: no Anesthetic plan: proceed Anesthesia type and monitoring: general GIVS and standard monitoring Results Review: All pre-operative results and documents have been reviewed as part of the pre-operative evaluation. Informed Consent: The patient's anesthetic plan and its attendant risks and benefits were discussed with the patient/family/POA. Questions were solicited and answers provided to the satisfaction of the patient/family/POA.
--- NOTE | 2023-11-23 07:49 | PM.HPGS ---
History of Present Illness History of Present Illness Consent: Risks, benefits, and alternatives have been discussed and questions answered. Patient agrees to proceed with procedure. Chief complaint: neoplasm screening Narrative: Eric Bojorquez is a 48 year old male here for first screening colonoscopy Review of Systems Review of Systems: All systems reviewed & are unremarkable except as noted in HPI and below PMFSH Past Medical History Medical History (Updated 11/23/23 @ 07:49 by Erwin Obrien MD) Back pain Boxers fracture Carpal tunnel syndrome of right wrist Colon cancer screening Ear drum perforation History of angina Hyperlipidemia Hypertension Tumor cells, benign Surgical History Surgical History History of placement of ear tubes Hx of carpal tunnel repair Family History Family History Father Acute myocardial infarction Other Family history of coronary artery disease Social History Social History Smoking status: Never smoker Smokeless tobacco user: chewing tobacco Second hand tobacco smoke exposure: No Alcohol intake: current Drinks per week: 12 Substance use: never Substance use type: does not use Living arrangements: with family Occupation/Education: occupation Gender identity (if verbalized by the patient): Male Spiritual care concerns: No Agree to blood products: Yes Meds Home Medications and Allergies Home Medications Medication Instructions Recorded Confirmed Type ibuprofen 600 mg tablet (IBU) 600 mg PO Q6H PRN pain #20 tabs 02/24/20 11/23/23 Rx fluticasone propionate 50 1 spray intranasal BID #16 grams 10/25/20 11/23/23 Rx mcg/actuation nasal spray,suspension (Allergy Relief (fluticasone)) loratadine 10 mg tablet (Claritin) 10 mg PO DAILY #30 tabs 10/25/20 11/23/23 Rx sildenafil 100 mg tablet (Viagra) 100 mg PO DAILY PRN sexual 06/18/22 11/23/23 Rx activity #10 tabs lisinopril 10 mg tablet 10 mg PO DAILY #90 tabs 05/01/23 11/23/23 Rx simvastatin 40 mg tablet 40 mg PO QPM #90 tabs 05/01/23 11/23/23 Rx Allergies Allergy/AdvReac Type Severity Reaction Status Date / Time No Known Allergies Allergy Verified 11/23/23 06:56 Vital Signs Vital Signs - 24 hr 11/23/23 06:50 Temperature 97.3 F L Pulse Rate 93 Respiratory Rate 18 Blood Pressure 128/80 Pulse Oximetry 98 Oxygen Delivery Room Air Exam Const: General: comfortable and no acute distress HENMT: Face/Nose/Sinus: Normal nares present Eyes: General: appearance normal, both eyes and all related structures Neck: Neck: no JVD Resp: Auscultation: clear to auscultation bilaterally Cardio: Rate: regular rate Rhythm: regular rhythm GI: Inspection: non-distended GI Palp: Yes Soft to palpation Skin: General skin exam: normal color Neuro: General: gait normal Speech: normal speech Extrem: General: normal to inspection Psych: Mental Status: mental status grossly normal Assessment and Plan Assessment and plan (1) Colon cancer screening: Code(s): Z12.11 - Encounter for screening for malignant neoplasm of colon Status: Acute Assessment and Plan: colonoscopy
[2023-11-23 08:06] VITALS: BP 87/64; PULSE 78; RESP 19; O2SAT 95
[2023-11-23 08:16] VITALS: BP 109/65; PULSE 73; RESP 17; O2SAT 96
[2023-11-23 08:26] VITALS: BP 126/76; PULSE 82; RESP 21; O2SAT 97
== END 2023-11-23 08:30 | disposition home or self-care (01) ==
PROVIDERS: PCP Family Medicine; Visit Provider Internal Medicine Gastroenterology
PROC: 0DJD8ZZ Inspection of Lower Intestinal Tract, Via Natural or Artificial Opening Endoscopic (ICD-10-PCS; CPT 45378; principal; 2023-11-23 08:00)
DX: Z12.11 Encounter for screening for malignant neoplasm of colon (principal); D12.2 Benign neoplasm of ascending colon; K64.8 Other hemorrhoids; K57.30 Diverticulosis of large intestine without perforation or abscess without bleeding; I10 Essential (primary) hypertension; E78.5 Hyperlipidemia, unspecified; F17.220 Nicotine dependence, chewing tobacco, uncomplicated; E66.9 Obesity, unspecified; Z68.31 Body mass index [BMI] 31.0-31.9, adult; Z98.890 Other specified postprocedural states; Z82.49 Family history of ischemic heart disease and other diseases of the circulatory system; Z79.1 Long term (current) use of non-steroidal anti-inflammatories (NSAID)
CPT/HCPCS: 45380; 88305; J2704; J7120

== ENCOUNTER 2024-11-02 09:49 | Emergency (ER) | payer OTHER, SELFPAY ==
[2024-11-02 10:03] VITALS: BP 145/92; PULSE 94; RESP 16; TEMP 36.5; O2SAT 98
--- NOTE | 2024-11-02 10:29 | ED_ITS ---
HPI - General Adult General Chief complaint: Skin/Abscess/Foreign Body Stated complaint: skin irritation Source: patient Mode of arrival: ambulatory Limitations: no limitations History of Present Illness HPI narrative: Patient presents for evaluation of redness to the right forearm. He indicates he was bit by dog last . He refuses to answer the majority of my interview questions including who the oncology pharmacist of the dog is, whether the dog is UTD on vaccinations, circumstances leading up to the bite and whether it was provoked. He states he is not diabetic. Date of last tetanus unknown. States pain is 1/ 10 in severity. No fever, chills, purulent drainage, nausea or vomiting Related Data Home Medications ?Medication ?Instructions ?Recorded ?Confirmed ?Last Taken ?Type omeprazole magnesium 20 mg 20 mg PO DAILY 11/02/24 11/02/24 Unknown History tablet,delayed release (Prilosec OTC) Allergies Allergy/AdvReac Type Severity Reaction Status Date / Time No Known Allergies Allergy Verified 11/02/24 10:03 Review of Systems Review of Systems: CONSTITUTIONAL: Denies fever, chills, or sweats. EYES: Denies visual changes, redness, or discharge. ENT: Denies rhinorrhea, congestion, sore throat, or otalgia. CARDIOVASCULAR: Denies chest pain, palpitations, or edema. RESPIRATORY: Denies cough or dyspnea. GASTROINTESTINAL: Denies abdominal pain, nausea, vomiting, or diarrhea. GENITOURINARY: Denies dysuria or hematuria. SKIN: Reports redness to right forearm at site of dog bite MUSCULOSKELETAL: Reports pain in right forearm NEUROLOGIC: Denies headache, numbness, dizziness, or weakness. PSYCHIATRIC: Denies anxiety or depression. [facility] Past Medical History Medical History Colon cancer screening Back pain History of angina Hypertension Hyperlipidemia Tumor cells, benign Carpal tunnel syndrome of right wrist Ear drum perforation Boxers fracture Surgical History Surgical History Hx of carpal tunnel repair History of placement of ear tubes Family History Family History Father Acute myocardial infarction Other Family history of coronary artery disease Social History Social History Smoking status: Never smoker Smokeless tobacco user: chewing tobacco Second hand tobacco smoke exposure: No Alcohol intake: current Drinks per week: 12 Substance use: never Substance use type: does not use Living arrangements: with family Occupation/Education: occupation Gender identity (if verbalized by the patient): Male Spiritual care concerns: No Agree to blood products: Yes Exam Narrative: GENERAL: Well-appearing, well-nourished, and in no acute distress. HEAD: Normocephalic, atraumatic. EYES: PERRLA and EOMI. ENT: Nares clear, no rhinorrhea or epistaxis. Mucous membranes moist. Oropharynx without tonsillar hypertrophy exudate or other lesions. Bilateral TMs pearly otero nonbulging NECK: Supple. No adenopathy or masses. No carotid bruits or JVD CHEST: Clear to auscultation. No respiratory distress. No wheezes rales or rhonchi HEART: Regular rate and rhythm. No murmur heard. Normal peripheral pulses. ABDOMEN: Soft, nontender, nondistended, normal active bowel sounds. EXTREMITIES: Normal range of motion. Trace swelling to right forearm without underlying fluctuance but with some induration SKIN: There are two puncture wounds to right forearm with overlying dried sanguinous drainage. There is some erythema adjacent to that NEURO: No focal deficits. Alert and oriented x3. PSYCH: Normal mood and affect. Course Course Emergency Course: This is a 49-year-old male who presented for evaluation of a dog bite to the right forearm. Unfortunately, he refused to answer any of my questions. Regardless, I think it would be prudent to treat him with augmentin. I did advise it is possible to miss pathology associated with the event since he is refusing to answer questions. He understands that and assumes personal responsibility for potential pathology that may arise as a result of that. Will dc with augmentin. Increase hydration. Follow up with primary provider. Go to the ER for worsening symptoms. Pt in agreement with plan of care. Level of Care: Express Care Visit Vital Signs Vital signs: Vital Signs Temperature 36.5 C 11/02/24 10:03 Pulse Rate 94 11/02/24 10:03 Respiratory Rate 16 11/02/24 10:03 Blood Pressure 145/92 H 11/02/24 10:03 Pulse Oximetry 98 11/02/24 10:03 Oxygen Delivery Room Air 11/02/24 10:03 Temperature 36.5 C 11/02/24 10:03 Pulse Rate 94 11/02/24 10:03 Respiratory Rate 16 11/02/24 10:03 Blood Pressure 145/92 H 11/02/24 10:03 Pulse Oximetry 98 11/02/24 10:03 Oxygen Delivery Room Air 11/02/24 10:03 Medical Decision Making Vital Signs Vital Signs: Vital Signs Temperature 36.5 C 11/02/24 10:03 Pulse Rate 94 11/02/24 10:03 Respiratory Rate 16 11/02/24 10:03 Blood Pressure 145/92 H 11/02/24 10:03 Pulse Oximetry 98 11/02/24 10:03 Oxygen Delivery Room Air 11/02/24 10:03 Temperature 36.5 C 11/02/24 10:03 Pulse Rate 94 11/02/24 10:03 Respiratory Rate 16 11/02/24 10:03 Blood Pressure 145/92 H 11/02/24 10:03 Pulse Oximetry 98 11/02/24 10:03 Oxygen Delivery Room Air 11/02/24 10:03 Discharge Plan Discharge Clinical Impression: Dog bite Patient Disposition: Home, Self-Care Condition: Stable Instructions: Antibiotic Form, Animal Bite (ED) Patient Language: South Sudanese Prescriptions: New amoxicillin-pot clavulanate 875-125 mg tablet 1 tablet PO Q12H Qty: 20 0RF No Action omeprazole magnesium [Prilosec OTC] 20 mg tablet,delayed release (DR/EC) 20 mg PO DAILY lisinopril 10 mg tablet 10 mg PO DAILY Qty: 90 3RF rosuvastatin 10 mg tablet 10 mg PO DAILY Qty: 90 3RF Follow-up/Referrals: Eden Blood MD [Primary Care Provider] - Time of Disposition: 10:28
[2024-11-02] MEDS: TETANUS,DIPHTHERIA,AC PERTUSSIS ADULT (0.5 ML) BOOSTRIX IM (10:38)
--- OUTSIDE RECORDS SUMMARY | 2024-11-02 10:48 | XMS_ITS | Referral Summary ---
Author Organization [facility] Address [address] [place] [address] Care Team Providers Care Tooth Cutter Clutch Name Role Phone Unavailable Primary Care Provider Unavailabl e Source Comments [facility],non-owned Affiliates and Associated Physician Practices is amultiple site organization consisting of ambulatory clinics and hospital sitesin [place], [place], [place] and [place]. This disclosure is being madepursuant to the Care Everywhere program and may not contain all information available regarding this patient. Last updated 18.[facility] [employer] Allergies No known active allergies Social History Tobacco Use Types Packs/Day Years Used Date Smoking Tobacco: Never Assessed Sex and Gender Information Value Date Recorded Sex Assigned at Not on file Gender Identity Not on file Sexual Orientation Not on file Plan of Treatment Not on file Administered Medications ERIC RENTERIA Personal/Family Spouse [address] [place] [address] ERIC RENTERIA Personal/Family Sp[place] [address] [place] [address] ERIC RENTERIA Personal/Family Sp[place] [address] [place] [address] Eric Renteria Personal/Family Self 1975 [address] [place] [address]
--- OUTSIDE RECORDS SUMMARY | 2024-11-02 10:48 | XMS_ITS | Clinical Summary ---
Author Organization [facility] Address [address] [place] [address] Care Team Providers Care Integrated Circuits Inspector Name Role Phone Unavailable Primary Care Provider Unavailabl e Source Comments [facility],non-owned Affiliates and Associated Physician Practices is amultiple site organization consisting of ambulatory clinics and hospital sitesin [place], [place], [place] and [place]. This disclosure is being madepursuant to the Care Everywhere program and may not contain all information available regarding this patient. Last updated 18.[facility] Allergies No known active allergies Social History Tobacco Use Types Packs/Day Years Used Date Smoking Tobacco: Never Assessed Sex and Gender Information Value Date Recorded Sex Assigned at Not on file Gender Identity Not on file Sexual Orientation Not on file Plan of Treatment Health Maintenance Due Date Last Done Comments COLOGUARD (AGES 45-75) - COL ON CA SCREENING 1975 COLON MONITORING 1975 COLONOSCOPY - COLON CA SCREENING 1975 CT COLONOGRAPHY - COLON CA SCREENING 1975 Colorectal Cancer Screening 1975 FIT - COLON CA SCREENING 1975 FLEX SIG - COLON CA SCREENING 1975 LIPID TESTING 1975 HIV SCREENING 1990 HEPATITIS C SCREENING 06/03/1993 DTAP/TDAP/TD VACCINES (1 - Tdap) 1994 HEPATITIS B VACCINE (1 of 3 - 19+ 3-dose series) 1994 COVID-19 VACCINE ( - 2023-2 5 season) 2024 INFLUENZA VACCINE (#1) 2024 DEPRESSION SCREENING 08/31/2024 ZOSTER VACCINE (1 of 2) 2025 HIB VACCINE Aged Out No longer eligi ble based on patient's age to complete this topic HPV VACCINE Aged Out No longer eligi ble based on patient's age to complete this topic MENINGOCOCCAL (Group B) VACCINE Aged Out No longer eligible based on patient's age to complete this topic MENINGOCOCCAL VACCINE Aged Out No bismark elisabet eligible based on patient's age to complete this topic PNEUMOCOCCAL VACCINE Aged Out No long er eligible based on patient's age to complete this topic
--- OUTSIDE RECORDS SUMMARY | 2024-11-02 10:48 | XMS_ITS | Patient Health Summary ---
Author Organization [facility] [employer] Address [address] [place] [address] Care Team Providers Care Herpetologist Name Role Phone Unavailable Primary Care Provider Unavailabl e Note from [facility],non-owned Affiliates and Associated Physician Practices is amultiple site organization consisting of ambulatory clinics and hospital sitesin [place], [place], [place] and [place]. This disclosure is being madepursuant to the Care Everywhere program and may not contain all information available regarding this patient. Last updated 18.[facility] [employer] Allergies No known active allergies Social History Tobacco Use Types Packs/Day Years Used Date Smoking Tobacco: Never Assessed Sex and Gender Information Value Date Recorded Sex Assigned at Not on file Gender Identity Not on file Sexual Orientation Not on file Procedures * SKIN TEST PPD - POINT OF CARE(Performed 03/23/2019) Performed for PPD screening test Results * SKIN TEST PPD - POINT OF CARE (03/23/2019) PPD 0 Comment:negative Other MISCELLANEOUS SAMPLE S / Unknown 03/23/2019 Audrey Marmolejo [facility] - POINT OF CA RE ORDERABLES
--- OUTSIDE RECORDS SUMMARY | 2024-11-02 10:48 | XMS_ITS | Continuity of Care Document ---
Author Organization [facility] Address [address] [place] [address] Phone Care Team Providers Care C Consultant Name Role Phone Marla SILVA, Rodríguez Unavailable Unavailable Allergies, Adverse Reactions, Alerts Substance Reaction Status Criticality No Known Allergies Active No Inform ation Procedures Procedure Date Scan Computerized; Retina Est Patient E/M Low MDM Fluorescein Angiography W/i&r 2 Scan Computerized; Retina No Charge Fundus Photography New Patient E/M Moderate MDM Advance Directives Directive Yes / No Effective Date File Name No Information Encounters Encounter Description Practice Location Reason(s) For Visit Diagnoses Date Provider Providers Copied on Encounter Est Patient E/M Low MDM [facility], [address], [place], [id number], tel:[phone] [facility] blurry vision (chief complaint) Central serous chorioretin opathy, bilateral Marla Arreguin. [address], [place], [id number], [place]. tel:[phone] Referring Provider: Devang Conrad, [address] [address], [place], [address]. tel:[phone] New Patient E/M Moderate MDM [facility], [address], [place], [id number], tel:[phone] [facility] PED (chief complaint) Central serous chorioretin opathy, bilateral Marla Arreguin. [address], [place], [place], [id number], [place]. tel:[phone] Referring Provider: Devang Conrad, [address], [place], [address]. tel:[phone] Family History Family Member Type Diagnosis Age At Onset No Information Payers Payer name Insurance type Covered green party ID Rebekah lechuga(s) [employer] [id number] Social History Type Description Quantity Date Captured Comments Alcohol Use Details Caffeine Use Details Unknown Tobacco Use Status No Information Smoking Status No Information Sex Male Sexual Orientation Straight or heterosexual Chief Complaint And Reason For Visit From encounter dated '11/19/2021 08:55'. blurry vision (chief complaint) Reason For Referral Reason For Referral No Information History Of Present Illness Encounter Date Complaint History Of Prese nt Illness blurry vision The 46 year old male presents for 2 month OCT OU, Central serous chorioretinopathy OU re-evaluation. Pt complains of unchanged blurry vision OU, onset several months. Pt complains of unchanged distortion OU onset several weeks. Pt denies flashes, floaters and pain OU. PED The 46 year old male presents for evaluation of PED in the right eye. The pt states there has been a decrease in VA OD x 3-4 months. The pt c/o increased blurriness and wavy lines OD. The pt denies any flashes of light, new floaters, or eye pain OU. Functional Status Date Functional Assessmen t No Information Instructions Date Instruction Additional Infor matabraham Impression/Plan - PE Ds OUNow with SRF ODStopped growth hormone x several weeks, but now back on them.I have encouraged the patient to avoid any medications containing steroids (including pills, nasal sprays, inhalers, and topical creams) and stress, if possible. Amsler grid instructions were reviewed. RBAC's of PDT vs Avastin vs epleronone d/w patient who elects obs. We will observe this condition closely without treatment at this time.Rec stopping growth hormone use. D/w patient.2m OCT OU Related to Central serous chorioretinopathy, bilateral Impression/Plan - PE [facility] Shi FA/OCT OUThe patient has central serous chorioretinopathy (CONNIE SCRATCHER). We discussed the natural history of this condition, such that the subretinal fluid usually resolves spontaneously over the next several months. I have encouraged the patient to avoid any medications containing steroids (including pills, nasal sprays, inhalers, and topical creams) and stress, if possible. Amsler grid instructions were reviewed. RBAC's of PDT vs Avastin vs epleronone d/w patient who elects obs. We will observe this condition closely without treatment at this time.Would consider stopping growth hormone use. D/w patient.2m OCT OU Related to Central serous chorioretinopathy, bilateral Assessments Type Assessment Date assessment Central serous chorioretinopathy , bilateral impression Central serous chori oretinopathy, bilateral: H35.713. OD > OScurrently on growth hormone therapy for anti-agingFA OU 09/10/2021 = leak and pooling within PED OD > OSOCT OU = PED OD>OS, no SRF/IRF OU Patient Care Teams Name Effective Dates (start - stop) Status Members No Information
--- OUTSIDE RECORDS SUMMARY | 2024-11-02 10:53 | XMS_ITS | Continuity of Care Document ---
Author Organization [facility] Address [address] [place] [address] Phone Care Team Providers Care Sole Leather Cutting Machine Operator Name Role Phone Marla SILVA, Rodríguez Unavailable [...] Patient E/M Low MDM [facility], [address], [place], [id number], tel:[phone] [facility] blurry vision (chief complaint) Central serous chorioretin opathy, bilateral Marla Arreguin. [address], [id number], [place]. tel:[phone] Referring Provider: Devang Conrad, [address] [address], [place], [address]. tel:[phone] New Patient E/M Moderate MDM [facility], [address], [place], [id number], tel:[phone] [facility] PED (chief complaint) Central serous chorioretin opathy, bilateral Marla Arreguin. [address], [place], [place], [id number], [place]. tel:[phone] Referring Provider: Devang Conrad, [address], [place], [address]. 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 We discussed the natural history of this [...]
== END 2024-11-02 10:38 | disposition home or self-care (01) ==
PROVIDERS: Emergency Provider Nurse Practitioner; PCP Family Medicine
DX: S51.831A Puncture wound without foreign body of right forearm, initial encounter (principal); W54.0XXA Bitten by dog, initial encounter; Z23 Encounter for immunization; I20.9 Angina pectoris, unspecified; I10 Essential (primary) hypertension; E78.5 Hyperlipidemia, unspecified
CPT/HCPCS: 90471; 90715; 99213; G0463

== ENCOUNTER 2024-12-07 17:30 | Emergency (ER) | payer OTHER, SELFPAY ==
--- NOTE | ~2024-12-07 | XR_ITS ---
XR chest 1V portable Ordering provider: Harry Guadalupe MD History: 49 years Male with . left chest pain, sharp x 3 days . Comparison: December 05, 2019 FINDINGS: MEDIASTINUM: The cardiac silhouette is not enlarged. LUNGS: No infiltrates, effusions or pneumothorax. OTHER: No free air under the diaphragm. Degenerative changes of the spine. IMPRESSION: No acute cardiopulmonary pathology. Reviewed, dictated and finalized at location A.
[2024-12-07 17:30] VITALS: BP 168/98; PULSE 78; PULSE 80; RESP 16; TEMP 36.5; O2SAT 95
--- NOTE | 2024-12-07 17:33 | ECG_ITS ---
Test Date: 2024-12-07 17:40:46 Measurements Intervals [place] Rate: 76 P: 39 SD: 163 QRS: -2 QRSD: 105 T: 19 QT: 354 QTc: 400 Interpretive Statements SINUS RHYTHM POSSIBLE LEFT VENTRICULAR HYPERTROPHY BASELINE ARTIFACT- I, II, III, AVR, AVL, AVF, V1 BORDERLINE ECG No previous ECG available for comparison Electronically Signed On 12-07-2024 18:14:02 CDT by Marshal Troy D.O.
--- OUTSIDE RECORDS SUMMARY | 2024-12-07 17:35 | XMS_ITS | Clinical Summary ---
Author Organization [facility] Address [address] [place] [address] Care Team Providers Care Upward Bound Director Name Role Phone Unavailable Primary Care Provider Unavailabl e Source Comments [facility],non-owned Affiliates and Associated Physician Practices is amultiple site organization consisting of ambulatory clinics and hospital sitesin [place], [place], [place] and [place]. This disclosure is being madepursuant to the Care Everywhere program and may not contain all information available regarding this patient. Last updated 18.[facility] Allergies No known active allergies Social History [...] VACCINE ( - 2023-2 5 season) 2024 DEPRESSION SCREENING 08/31/2024 INFLUENZA VACCINE (Season Ended) 2025 ZOSTER VACCINE (1 of 2) 2025 HIB VACCINE Aged Out No longer eligi ble based on patient's age to complete this topic HPV VACCINE Aged Out No longer eligi ble based on patient's age to complete this topic MENINGOCOCCAL (Group B) VACC INE SHARED DECISION-MAKING Aged Out No longer eligibl e based on patient's age to complete this topic MENINGOCOCCAL GROUPS A/C/Y/W VACCINE Aged Out No longer eligible b ased on patient's age to complete this topic
--- OUTSIDE RECORDS SUMMARY | 2024-12-07 17:35 | XMS_ITS | Continuity of Care Document ---
Author Organization [facility] Address [address] [place] [address] Phone Care Team Providers Care Certified Substance Abuse Counselor Name Role Phone Marla SILVA, Rodríguez Unavailable [...] Patient E/M Low MDM [facility], [address], [place], [id number], tel:[phone] [facility] blurry vision (chief complaint) Central serous chorioretin opathy, bilateral Marla Arreguin. [address], [id number], [place]. tel:[phone] Referring Provider: Devang Conrad, [address] [address], [place], [address]. tel:[phone] New Patient E/M Moderate MDM [facility], [address], [place], [id number], tel:[phone] [facility] PED (chief complaint) Central serous chorioretin opathy, bilateral Marla Arreguin. [address], [place], [place], [id number], [place]. tel:[phone] Referring Provider: Devang Conrad, [address], [place], [address]. 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 We discussed the natural history of this [...]
--- NOTE | 2024-12-07 17:37 | ED.CHESTPAIN ---
HPI - Chest Pain General Chief Complaint: Chest Pain Stated Complaint: chest pain Time Seen by Provider: 12/07/24 17:37 Source: patient Mode of arrival: ambulatory Limitations: no limitations History of Present Illness HPI narrative: 49-year-old male with a history of hypertension, dyslipidemia, NIMISHA, hearing loss, presents to the ED with a 5 day history of -- unprovoked left-sided chest pain which is rated as 1/10. No radiation of the pain. No nausea /vomiting. No diaphoresis. No shortness of breath or lightheadedness. The patient had a negative stress test in 2021. the patient has had chest pain in the past and has had extensive workup. No fever or chills. No cough or sputum production. Patient is trying to eat uses CPAP on a regular basis. The patient took 2 tablets of regular aspirin and 2 tablets of baby aspirin. MD complaint: chest pain Onset (ago): day(s) ( Five days) Timing of current episode: constant Prior episodes: Yes Onset: during rest Pain location: left chest Pain radiation: none Severity: mild Pain scale (0-10): 1 Quality: aching Relieving factors: nothing Exacerbating factors: nothing Treatment prior to arrival: aspirin Related Data Home Medications ?Medication ?Instructions ?Recorded ?Confirmed ?Last Taken ?Type omeprazole magnesium 20 mg 20 mg PO DAILY 11/02/24 11/02/24 Unknown History tablet,delayed release (Prilosec OTC) Allergies Allergy/AdvReac Type Severity Reaction Status Date / Time No Known Allergies Allergy Verified 12/07/24 17:36 Review of Systems Review of Systems: All systems reviewed & are unremarkable except as noted in HPI and below Constitutional: Constitutional: Reports as per HPI and Reports no additional constitutional complaints Eyes: Eyes: Reports as per HPI and Reports no additional eye complaints ENT: Reports system reviewed and no additional complaints, except as documented and Reports as per HPI Cardiovascular: Cardiovascular: Reports as per HPI, Reports no additional cardiovascular complaints and Reports chest pain Respiratory: Respiratory: Reports as per HPI and Reports no additional respiratory complaints Gastrointestinal: Gastrointestinal: Reports as per HPI and Reports no additional gastrointestinal complaints Genitourinary: Genitourinary: Reports no additional male genitourinary complaints and Reports as per HPI Musculoskeletal: Musculoskeletal: Reports no additional musculoskeletal complaints and Reports as per HPI Integumentary/Breasts: Skin/Breast: Reports system reviewed and no additional complaints, except as docu and Reports as per HPI Neurologic: Reports system reviewed and no additional complaints, except as documented and Reports as per HPI Psychiatric: Psychiatric: Reports no additional psychiatric complaints and Reports as per HPI Endocrine: Endocrine: Reports no additional endocrine complaints and Reports as per HPI Hematologic/Lymphatic: Hematologic/Lymphatic: Reports no additional hematologic/lymphatic complaints and Reports as per HPI Allergic/Immunologic: Allergic/Immunologic: Reports no additional allergic/immunologic complaints and Reports as per HPI [facility] Past Medical History Medical History Colon cancer screening Back pain History of angina Hypertension Hyperlipidemia Tumor cells, benign Carpal tunnel syndrome of right wrist Ear drum perforation Boxers fracture Surgical History Surgical History Hx of carpal tunnel repair History of placement of ear tubes Family History Family History Father Acute myocardial infarction Other Family history of coronary artery disease Social History Social History Smoking status: Never smoker Smokeless tobacco user: chewing tobacco Second hand tobacco smoke exposure: No Alcohol intake: current Drinks per week: 12 Substance use: never Substance use type: does not use Living arrangements: with family Occupation/Education: occupation Gender identity (if verbalized by the patient): Male Spiritual care concerns: No Agree to blood products: Yes Exam Narrative: Pulse is 76 with a blood pressure 158/92. Oxygen saturation of 96% Const: General: healthy appearing and no acute distress Nutritional Appearance: well nourished Orientation/consciousness: patient oriented x3 Limitations: no limitations HENMT: Head: normal to inspection Ears: external ears normal Face/Nose/Sinus: Normal external nose present Face and sinus: normal facial exam Mouth: Yes Normal oral and palatal mucosa present Throat: posterior oropharynx normal Eyes: Conjunctivae: conjunctivae normal Pupils: Equal, round and reactive pupils present EOM: EOMs intact bilaterally Direct Ophthalmoscopy: no photophobia Neck: Neck: normal visual inspection and no lymphadenopathy Chest: Chest palpation & inspection: normal inspection of the chest Resp: Effort & Inspection: normal respiratory effort Auscultation: clear to auscultation bilaterally Cardio: Rate: regular rate Rhythm: regular rhythm GI: Auscultation: normal bowel sounds Other: no tenderness/rigidity / rebound. : General: Yes no CVA tenderness Back/Spine/Pelvis: Back: no CVA tenderness Skin: General skin exam: normal color Rashes: no rashes Wounds: no wounds Neuro: General: patient oriented x3, moves all extremities, no meningeal signs, no focal motor deficits and CN's II-XI intact bilaterally Cranial nerves: Yes Nystagmus not present Speech: normal speech Gait exam (Neuro): Normal gait present Extrem: General: normal to inspection and no clubbing, cyanosis or edema Psych: Mental Status: mental status grossly normal Affect: normal affect Course Course Emergency Course: Left chest pain-- EKG did not show any acute findings. The patient had a normal troponin. Patient had a negative stress test in 2021. Patient has had 1/10 chest pain for the last 5-6 days. He has had chest pain in the past and has had extensive workup which was unremarkable. Vital Signs Vital signs: Vital Signs Temperature 36.5 C 12/07/24 17:30 Pulse Rate 78 12/07/24 17:30 Respiratory Rate 16 12/07/24 17:30 Blood Pressure 168/98 H 12/07/24 17:30 Pulse Oximetry 95 12/07/24 17:30 Oxygen Delivery Room Air 12/07/24 17:30 Temperature 36.5 C 12/07/24 17:30 Pulse Rate 75 12/07/24 18:15 Respiratory Rate 17 12/07/24 18:15 Blood Pressure 134/95 H 12/07/24 18:15 Pulse Oximetry 94 12/07/24 18:15 Oxygen Delivery Room Air 12/07/24 17:30 MDM - Chest Pain MDM Narrative Medical decision making narrative: Chest pain Differential Diagnosis Differential diagnosis: Likely stable angina and atypical chest pain Medical Records Data Attestation: I reviewed the patient's medical records. Lab Data Attestation: I reviewed the patient's lab results. 12/07/24 18:04 12/07/24 18:04 Labs: Lab Results 12/07/24 Range/Units 18:04 WBC 7.6 (4.8-10.8) K/mm3 RBC 5.17 (4.70-6.10) M/mm3 Hgb 15.3 (14.0-18.0) g/dL Hct 45.5 (40.0-54.0) % MCV 88.0 (78.0-102.0) fL MCH 29.6 (27.0-31.0) pg MCHC 33.6 (32-36) g/dL RDW 12.1 (11.6-14.4) % Plt Count 185 (150-420) K/mm3 MPV 10.3 (8.7-11.0) fl Immature Gran % (Auto) 0.1 H (0.0-0.0) % Neut % (Auto) 59.5 (50.0-70.0) % Lymph % (Auto) 31.9 (18.0-42.0) % [place] % (Auto) 6.4 (2.0-11.0) % Eos % (Auto) 2.0 (1.0-6.0) % Baso % (Auto) 0.1 (0.0-1.0) % Lymph # (Auto) 2.44 (1.10-4.50) K/mm3 [place] # (Auto) 0.49 (0.10-0.90) K/mm3 Eos # (Auto) 0.15 (0.02-0.50) K/mm3 Baso # (Auto) 0.01 (0.00-0.10) K/mm3 Abs Immat Gran (auto) 0.01 H (0.00-0.00) K/mm3 Absolute Neuts (auto) 4.54 (1.70-7.20) K/mm3 Absolute Nucleated RBC 0.00 (0.00-0.00) K/mm3 Nucleated RBC % 0.0 (0-0.0) % PT 10.3 (9.50-12.1) Seconds INR 0.9 APTT 26.3 (23.9-30.70) Sec Sodium 137 (136-145) mmol/L Potassium 3.8 (3.5-5.1) mmol/L Chloride 102 (98-108) mmol/L Carbon Dioxide 30 (21-32) mmol/L Anion Gap 5 (4-12) mmol/L BUN 16 (7-18) mg/dL Creatinine 1.25 (0.70-1.30) mg/dL Estim Creat Clear Calc 83 ml/min Estimated GFR > 60 (59 - ) Glucose 115 H (70-99) mg/dL Calculated Osmolality 286 (285-295) mOsm/kg Lactic Acid 1.3 (0.4-2.0) mmol/L Calcium 8.7 (8.5-10.1) mg/dL Total Bilirubin 0.3 (0.00-1.00) mg/dL AST 21 (15-37) U/L ALT 35 (16-63) U/L Alkaline Phosphatase 70 (46-116) U/L Troponin I 14.9 (0.00-60.4) ng/L Total Protein 7.7 (6.4-8.2) g/dL Albumin 3.8 (3.4-5.0) g/dL Discharge Plan Discharge Clinical Impression: Chest pain Qualifiers: Chest pain type: other chest pain Qualified Code(s): R07.89 - Other chest pain Patient Disposition: Home Condition: Stable Instructions: Antibiotic Form, Chest Pain (ED) Patient Language: Iranian Prescriptions: No Action omeprazole magnesium [Prilosec OTC] 20 mg tablet,delayed release (DR/EC) 20 mg PO DAILY amoxicillin-pot clavulanate 875-125 mg tablet 1 tablet PO Q12H Qty: 20 0RF lisinopril 10 mg tablet 10 mg PO DAILY Qty: 90 3RF rosuvastatin 10 mg tablet 10 mg PO DAILY Qty: 90 3RF Follow-up/Referrals: Eden Blood MD [Primary Care Provider] - Time of Disposition: 18:54 Quality HEART score for chest pain patients History: slightly suspicious ECG: normal Age: > 45 and < 65 years Risk factors: 1 or 2 risk factors Troponin: < or = to 1x normal limit Heart score: 2
[2024-12-07 17:46] VITALS: BP 158/92; PULSE 82; RESP 16; O2SAT 95
[2024-12-07 18:00] VITALS: BP 140/96; PULSE 82; RESP 20; O2SAT 96
[2024-12-07 18:07] LABS: Basophils Absolute Auto 0.01 K/mm3 (0.00-0.10); Basophils Percent Auto 0.1 % (0.0-1.0); Eosinophils Absolute Auto 0.15 K/mm3 (0.02-0.50); Hematocrit 45.5 % (40.0-54.0); Hemoglobin 15.3 g/dL (14.0-18.0); Immature Granulocyte Absolute 0.01 K/mm3 (0.00-0.00); Immature Granulocyte Percent A 0.1 % (0.0-0.0); Lymphocytes Absolute Auto 2.44 K/mm3 (1.10-4.50); Lymphocytes Percent Auto 31.9 % (18.0-42.0); Mean Corpuscular HGB Conc 33.6 g/dL (32-36); Mean Corpuscular Hemoglobin 29.6 pg (27.0-31.0); Mean Platelet Volume 10.3 fl (8.7-11.0); Monocytes Absolute Auto 0.49 K/mm3 (0.10-0.90); Monocytes Percent Auto 6.4 % (2.0-11.0); Neutrophils Absolute Auto 4.54 K/mm3 (1.70-7.20); Neutrophils Percent Auto 59.5 % (50.0-70.0); Platelet Count Result 185 K/mm3 (150-420); Red Blood Count 5.17 M/mm3 (4.70-6.10); Red Cell Distribution Width 12.1 % (11.6-14.4); White Blood Count 7.6 K/mm3 (4.8-10.8)
--- OUTSIDE RECORDS SUMMARY | 2024-12-07 18:14 | XMS_ITS | Clinical Summary ---
Author Organization [facility] Address [address] [place] [address] Care Team Providers Care Poultry Husbandman Name Role Phone Unavailable Primary Care Provider Unavailabl e Source Comments [facility],non-owned Affiliates and Associated Physician Practices is amultiple site organization consisting of ambulatory clinics and hospital sitesin [place], [place], [place] and [place]. This disclosure is being madepursuant to the Care Everywhere program and may not contain all information available regarding this patient. Last updated 18.[facility] Allergies No known active allergies Social History [...]
--- OUTSIDE RECORDS SUMMARY | 2024-12-07 18:14 | XMS_ITS | Continuity of Care Document ---
Author Organization [facility] Address [address] [place] [address] Phone Care Team Providers Care Back Strip Machine Operator Name Role Phone Marla SILVA, [...] Patient E/M Low MDM [facility], [address], [place], [id number], tel:[phone] [facility] blurry vision (chief complaint) Central serous chorioretin opathy, bilateral Marla Arreguin. [address], [id number], [place]. tel:[phone] Referring Provider: Devang Conrad, [address] [address], [place], [address]. tel:[phone] New Patient E/M Moderate MDM [facility], [address], [place], [id number], tel:[phone] [facility] PED (chief complaint) Central serous chorioretin opathy, bilateral Marla Arreguin. [address], [place], [place], [id number], [place]. tel:[phone] Referring Provider: Devang Conrad, [address], [place], [address]. 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 We discussed the natural history of this [...]
[2024-12-07 18:15] VITALS: BP 134/95; PULSE 75; RESP 17; O2SAT 94
[2024-12-07 18:21] LABS: INR 0.9; Prothrombin Time 10.3 Seconds (9.50-12.1)
[2024-12-07 18:23] LABS: Partial Thromboplastin Time 26.3 Sec (23.9-30.70)
--- NOTE | 2024-12-07 18:26 | PC.NURSE ---
PT IS SITTING ON STRETCHER PLAYING ON CELL PHONE. DENIES ANY NEEDS OR COMPLAINTS AT THIS TIME. FAMILY IS AT BEDSIDE. NAD NOTED. WILL CONTINUE TO MONITOR. PT IS AWAITING RESULTS.
[2024-12-07 18:27] LABS: Lactic Acid Reflex 1.3 mmol/L (0.4-2.0)
[2024-12-07 18:29] LABS: Alanine Aminotransferase 35 U/L (16-63); Albumin Level 3.8 g/dL (3.4-5.0); Alkaline Phosphatase 70 U/L (46-116); Anion Gap 5 mmol/L (4-12); Aspartate Amino Transferase 21 U/L (15-37); Bilirubin,Total 0.3 mg/dL (0.00-1.00); Blood Urea Nitrogen 16 mg/dL (7-18); Calcium 8.7 mg/dL (8.5-10.1); Carbon Dioxide 30 mmol/L (21-32); Chloride 102 mmol/L (98-108); Estimated CRCL calculation 83 ml/min; Estimated Glomerular Filt Rate > 60; Glucose 115 mg/dL (70-99); Osmolality Calculated 286 mOsm/kg (285-295); Potassium 3.8 mmol/L (3.5-5.1); Sodium 137 mmol/L (136-145); Total Protein 7.7 g/dL (6.4-8.2)
[2024-12-07 18:30] VITALS: BP 148/94; PULSE 75; RESP 17; O2SAT 94
[2024-12-07 18:31] LABS: Troponin I 14.9 ng/L (0.00-60.4)
[2024-12-07 18:45] VITALS: BP 144/93; PULSE 76; RESP 18; O2SAT 93
== END 2024-12-07 19:05 | disposition home or self-care (01) ==
PROVIDERS: Emergency Provider Internal Medicine Critical Care Medicine; PCP Family Medicine
DX: R07.89 Other chest pain (principal); I10 Essential (primary) hypertension; E78.5 Hyperlipidemia, unspecified
CPT/HCPCS: 36415; 71045; 80053; 83605; 84484; 85025; 85610; 85730; 93005; 99284